=== PATIENT | male | born 1990 | race Caucasian/White ===

== ENCOUNTER 2021-11-14 16:34 | Emergency (ER) | payer OTHER ==
[~2021-11-14] VITALS: Ht 167.6 cm; Wt 113.4 kg
[2021-11-14 17:55] VITALS: BP 163/108
--- NOTE | 2021-11-14 18:33 | NUR ---
PT AMB TO BED 11.
--- NOTE | 2021-11-14 19:06 | NUR ---
31 y/o male biba, homeless, c/o generalized weakness that started today. pt states he was drinking heavily yesterday, pt was found on floor by amr and brought here. pt a&ox4, ambulates with steady gait. denies cough, fever, sob, cp, abd pain, chills, sore throat. pmh: denies nka med: denies
--- NOTE | 2021-11-14 19:21 | NUR ---
Pt report given to kieran goff. Transfer of care at this time.
[2021-11-14 20:10] VITALS: BP 134/68
--- NOTE | 2021-11-14 20:10 | NUR ---
Patient discharged with v/s stable. Written and verbal after care instructions given and explained. Patient verbalized understanding. Ambulatory with steady gait. All questions addressed prior to discharge. Advised to follow up with PMD.
== END 2021-11-14 20:10 | disposition home or self-care (01) ==
LOC: MED 16:34 → EDBD 16:34 → MED 20:10
DX: T73.0XXA Starvation, initial encounter (principal); F10.129 Alcohol abuse with intoxication, unspecified; Z59.00 Homelessness unspecified; Y90.9 Presence of alcohol in blood, level not specified
CPT/HCPCS: 99283